=== PATIENT | female | born 1950 | race Native Hawaiian/Other Pacific Islander ===

== ENCOUNTER 2017-06-27 08:38 | Outpatient (CLI) | payer OTHER ==
[~2017-06-27 08:38] MED LIST: ALPR0.5T24 PO; BENICAR HCT1 TA1 PO; ESTR1TAB13 PO; LEVO0.0218 PO; LIPITOR80 MG PO; RANI150T78 PO; SINGULAIR10 MG OR; TRADJENTA5 MG OR; TRAJENTA PO; ZOLP10TA2 PO
== END 2017-06-27 19:19 | disposition home or self-care (01) ==
LOC: MAMMO 08:38
DX: Z12.31 Encounter for screening mammogram for malignant neoplasm of breast (principal)

== ENCOUNTER 2018-06-29 07:59 | Outpatient (CLI) | payer OTHER | END 2018-06-29 19:09 | disposition home or self-care (01) | LOC: MAMMO 07:59 | DX: Z13.820 Encounter for screening for osteoporosis (principal); Z12.31 Encounter for screening mammogram for malignant neoplasm of breast; Z78.0 Asymptomatic menopausal state ==

== ENCOUNTER 2020-10-14 10:59 | Outpatient (CLI) | payer OTHER | END 2020-10-14 19:16 | disposition home or self-care (01) | LOC: MAMMO 10:59 | PROVIDERS: ATTEND Nurse Practitioner | DX: Z12.31 Encounter for screening mammogram for malignant neoplasm of breast (principal) ==

== ENCOUNTER 2022-04-28 12:09 | Outpatient (CLI) | payer OTHER | END 2022-04-28 19:29 | disposition home or self-care (01) | LOC: RAD 12:09 | PROVIDERS: ATTEND Internal Medicine Pulmonary Disease | DX: R06.09 Other forms of dyspnea (principal) ==

== ENCOUNTER 2022-05-24 10:50 | Outpatient (CLI) | payer OTHER | END 2022-05-24 19:07 | disposition home or self-care (01) | LOC: MAMMO 10:50 | PROVIDERS: ATTEND Registered Nurse | DX: Z12.31 Encounter for screening mammogram for malignant neoplasm of breast (principal); Z13.820 Encounter for screening for osteoporosis; N95.8 Other specified menopausal and perimenopausal disorders ==

== ENCOUNTER 2022-10-06 10:22 | Outpatient (CLI) | payer OTHER ==
[2022-10-06 11:02] LABS: PLATELET COUNT 296 K/uL (152-353)
[2022-10-06 11:14] LABS: POTASSIUM 4.1 mmol/L (3.6-5.2)
== END 2022-10-06 20:08 | disposition home or self-care (01) ==
LOC: LABW 10:22
PROVIDERS: ATTEND Internal Medicine Pulmonary Disease
DX: N28.89 Other specified disorders of kidney and ureter (principal); D63.1 Anemia in chronic kidney disease; E11.9 Type 2 diabetes mellitus without complications; E79.0 Hyperuricemia without signs of inflammatory arthritis and tophaceous disease; R80.8 Other proteinuria; J43.2 Centrilobular emphysema; N18.9 Chronic kidney disease, unspecified; I12.9 Hypertensive chronic kidney disease with stage 1 through stage 4 chronic kidney disease, or unspecified chronic kidney disease; E55.9 Vitamin D deficiency, unspecified
CPT/HCPCS: 36415; 80053; 81002; 82306; 82570; 83735; 83970; 84100; 84156; 84550; 85027

== ENCOUNTER 2022-11-17 13:38 | Outpatient (CLI) | payer OTHER ==
[2022-11-17 14:25] LABS: POTASSIUM 4.6 mmol/L (3.6-5.2)
== END 2022-11-17 19:50 | disposition home or self-care (01) ==
LOC: LABW 13:38
PROVIDERS: ATTEND Student in an Organized Health Care Education/Training Program
DX: N28.89 Other specified disorders of kidney and ureter (principal); D63.1 Anemia in chronic kidney disease; E83.9 Disorder of mineral metabolism, unspecified; E11.9 Type 2 diabetes mellitus without complications; E79.0 Hyperuricemia without signs of inflammatory arthritis and tophaceous disease; R80.8 Other proteinuria; N18.9 Chronic kidney disease, unspecified; I12.9 Hypertensive chronic kidney disease with stage 1 through stage 4 chronic kidney disease, or unspecified chronic kidney disease
CPT/HCPCS: 36415; 80053; 83036; 84550

== ENCOUNTER 2023-01-13 15:02 | Outpatient (CLI) | payer OTHER | END 2023-01-13 19:27 | disposition home or self-care (01) | LOC: RAD 15:02 | PROVIDERS: ATTEND Nurse Practitioner Family | DX: R05.9 Cough, unspecified (principal) ==